=== PATIENT | male | born 1955 | race Caucasian/White ===

== ENCOUNTER 2016-06-04 12:42 | Emergency (ER) | payer BC, OTHER ==
[~2016-06-04] VITALS: Ht 177.8 cm; Wt 97.8 kg
[2016-06-04 12:50] VITALS: TEMP 36.5; Ht 177.8 cm; Wt 97.8 kg
[2016-06-04] MEDS ORDERED: XYLOCAINE 1%/SOD BICARB 20 ML VIAL INFIL ONE ×2 (13:13→13:15)
[2016-06-04] MEDS ORDERED: PRD/1 PO (13:24)
[2016-06-04] MEDS ORDERED: LISI5TAB PO (13:24)
[2016-06-04] MEDS ORDERED: PRED-301 PO (13:24)
[2016-06-04] MEDS ORDERED: ATOR-22 PO (13:24)
[2016-06-04] MEDS ORDERED: CEPH500C PO (14:28)
[2016-06-04] MEDS ORDERED: HYDR-5688 PO (14:28)
[2016-06-04] MEDS ORDERED: CEFAZOLIN IV 2,000 MG in DEXTROSE 5% 50ML 50 ML IV ONE (14:30)
[2016-06-04 15:30] VITALS: BP 134/76; PULSE 72; O2SAT 98
--- NOTE | 2016-06-04 18:05 | EMERGENCY ROOM VISIT NOTE ---
ED Visit Note First contact with patient: 13:01 Chief complaint: Left hand multiple finger lacerations HPI: This 60-year-old white male presents for evaluation of multiple lacerations on his left fingers. The patient was using a table saw today and accidentally pushed his hand into the blade. He sustained lacerations on the dorsum of the index, long, and ring fingers. Bleeding was controlled with pressure. Injury occurred about 20 minutes ago. He denies any numbness, tingling, or loss of motion. No other complaints. Tetanus is believed to be up -to-date. Pain is 3/10. Right-hand dominant. His accompanies him today. Supplemental sheet was reviewed. Previous surgeries: None Medical history: Elevated cholesterol, hypertension, polymyalgia rheumatica Current Medications: Reviewed and filed in patient's chart Allergies: NKDA Tetanus: 2013 Family History: Noncontributory Social History: . Employed part-time. No tobacco use. REVIEW OF SYSTEM: HEENT: No dizziness, visual problems, hearing loss, or tinnitus. There is no difficulty swallowing and no oral lesions are present. PULMONARY: No cough, shortness of breath, sputum production or hemoptysis. CARDIOVASCULAR: No chest pain, palpitations, shortness of breath or peripheral edema. GASTROINTESTINAL: No diarrhea, constipation, nausea, vomiting, or abdominal pain. GENITOURINARY: No dysuria, frequency, urgency or nocturia. NEUROLOGIC: No weakness, epilepsy or history of neurological problems. MUSCULOSKELETAL: No history of joint tenderness/swelling. No history of arthritis or arthralgias. SKIN: No rashes or lesions. PSYCHIATRIC: No history of depression or mental illness. ENDOCRINE: No history of diabetes, thyroid disorders, or abnormal hair growth. Physical Exam: Vitals: Afebrile. Reviewed and filed in patient's chart General: Well-developed, well-nourished, middle-aged white male, in no acute distress. Obvious discomfort. He is sitting on the bed. Alert and oriented. Skin: Warm and dry with good turgor. No rashes. No ecchymosis or erythema. The patient is not diaphoretic. No abrasions. The patient has a laceration of the ring finger involving the distal phalanx and part of his nail. Approximately one quarter of the nail is missing. It involves the distal radial aspect of the tuft. This can be closed. It measures approximately 1 cm. The long finger has a dorsal laceration measuring 3 cm. There is also nail involvement and it does cross the DIP joint. This also could be closed. The index finger has a 2 cm laceration, also crossing the DIP joint. Approximately one third of the fingernail is missing. There is also a secondary laceration of just less than a centimeter on the index finger. Bleeding is active for all of these. No foreign material is visible. Wound edges are regular. Musculoskeletal: Patient has intact flexion and extension to each of the digits. Strength is 5/5 for resisted flexion and extension. This includes the DIP joints. Neurologic: Gross sensation is intact across the each of the digits by soft touch. Capillary refill is equal for each of the fingers.. Impression: Left hand multiple finger lacerations, with extensor tendon involvement and bone involvement/joint disruption Procedure: Informed oral consent was obtained for repair. Left hand was prepped with Betadine and draped with a sterile towel. Fingers were anesthetized using a total of 20 mL 1% plain buffered lidocaine in a digital block for each digit. Thorough inspection was performed for each digit. There is bone exposure and part of the tuft missing on the ring finger. There is also bone exposure and bone missing on the long finger. He has violated the DIP joint and there is approximately 25% of the joint entirely missing. There is approximately 50% of the extensor tendon attachment missing as well. He has violated the index finger distal phalanx and expose the extensor tendon on the index finger, though it is not visibly violated. Wounds were irrigated copiously using dilute Betadine and sterile saline under jet spray lavage. Wound edges were revised sharply using iris scissors. Wounds were closed using 4-0 nylon. Good wound edge approximation was achieved for each finger. No nail repair was performed. Hemostasis was achieved. Plan: Patient was educated regarding today's findings. Conservative care measures were discussed. Total laceration length is just under 6 cm. He has violated the joint of the long finger and approximately 50% of the extensor tendon attachment at the distal phalanx. There is nothing to repair were closed in regard to the tendon or the joint. He is aware. I did speak with Dr. Crowley by telephone. He'll follow the patient in the office later this week. He did recommend IV antibiotics and oral antibiotics. IV was established. Patient was given Ancef 2 g IV. Perception was provided for Keflex 500 mg 4 times a day 3 days. He was also prescribed Switchback 5 mg to be used every 6 hours as needed for severe pain. Driving precautions were given. Tylenol and Motrin every 6 hours for mild discomfort. Keep the wound covered and clean until seen on Sunday. Ice and elevate intermittently as needed for discomfort. Wound care handout was provided. Sutures out in 12 days. He may shower but keep the hand dry. Avoid soaking or swimming. Return to the ER for any acute changes or signs of infection. Current/Historical Medications Scheduled Atorvastatin (Lipitor), 20 MG PO DAILY Cephalexin Monohydrate (Keflex), 500 MG PO QID Lisinopril (Prinivil), 5 MG PO DAILY Prednisone (Prednisone), 3 MG PO DAILY Prednisone (Prednisone), 5 MG PO DAILY Scheduled PRN Hydrocodone/Acetaminophen 5MG/325MG (Switchback 5MG/325MG), 1-2 TABLET PO Q6 PRN for Pain Allergies Coded Allergies: No Known Allergies (Unverified , 06/04/16) Vital Signs Date Time Temp Pulse Resp B/P Pulse Ox O2 Delivery O2 Flow Rate FiO2 06/04/16 15:30 72 16 134/76 98 06/04/16 12:50 36.5 115 18 118/86 95 Room Air Medications Administered Medications (Trade) Dose Ordered Sig/Nitesh Route Start Time Stop Time Status Last Admin Dose Admin Cefazolin Sodium/ Dextrose (Ancef Iv/D5 50ml) 60 ml @ 100 mls/hr ONE ONCE IV 06/04/16 14:30 06/04/16 15:05 DC 06/04/16 15:02 100 MLS/HR Departure Information Impression Primary Impression: Laceration of finger nail bed Additional Impressions: Laceration of finger of left hand Laceration of finger of left hand with tendon involvement Dispostion Home / Self-Care Condition GOOD Prescriptions Hydrocodone/Acetaminophen 5MG/325MG (Switchback 5MG/325MG) Tab 1-2 TABLET PO Q6 Y for Pain, #10 TAB For Initial Treatment Prov: Estuardo Strickland,P.A. 06/04/16 Cephalexin Monohydrate (Keflex) 500 Mg Cap 500 MG PO QID, #13 CAP Prov: Estuardo Strickland,P.A. 4/9/17 Referrals Wan Crowley M.D. Forms HOME CARE DOCUMENTATION FORM, SPECIAL NARCOTICS INSTRUCTIONS, MOTRIN USE, TYLENOL USE, IMPORTANT VISIT INFORMATION Patient Instructions [facility] Additional Instructions Keep the fingers and dry until seen by Dr. Crowley on Sunday You may shower but keep the hand dry Tylenol and Motrin every 6 hours as needed for discomfort Sutures out in 12 days Return to the ED for any acute changes or signs of infection. Call Dr. Crowley's office tomorrow for follow-up on Sunday Keflex one pill 4 times a day for 3 more days Problem Qualifiers
== END 2016-06-04 15:31 | disposition home or self-care (01) ==
LOC: C.EDB 12:43 → C.EDD 15:31
DX: S61.311A Laceration without foreign body of left index finger with damage to nail, initial encounter (principal); S61.315A Laceration without foreign body of left ring finger with damage to nail, initial encounter; S61.312A Laceration without foreign body of right middle finger with damage to nail, initial encounter; W26.8XXA Contact with other sharp object(s), not elsewhere classified, initial encounter; Y92.89 Other specified places as the place of occurrence of the external cause; E78.00 Pure hypercholesterolemia, unspecified; I10 Essential (primary) hypertension

== ENCOUNTER 2019-02-20 10:26 | Inpatient (IN) ==
--- NOTE | 2019-02-03 08:33 | PAT Medication Instructions ---
Medication Instructions Date of Service February 03, 2019 Home Medications atorvastatin 20 mg PO QPM hydroxychloroquine 200 mg PO BID lisinopril 5 mg PO QAM ASK your prescriber and surgeon hydroxychloroquine 200 mg PO BID DO NOT take the morning of surgery lisinopril 5 mg PO QAM Take evening before surgery atorvastatin 20 mg PO QPM Other Notes If you have any questions please call us at [phone] or [phone] or [phone] or [phone]
--- NOTE | 2019-02-03 09:29 | Anesthesiology Consultation ---
Date of Service February 03, 2019 Assessment & Plan (1) Encounter for pre-operative examination: *Note, facial asymmetry is BASELINE for patient. Chart Review Chart Review: Acceptable Risk for Surgery and Patient seen in Pre Admission Testing Teaching & Discussion Instructed NPO after midnight before surgery, except medications with 15 cc of water. Medication instructions provided according to the PAT guidelines. History Surgery Operation Date: 02/20/19 12:00 Proposed Procedures p Laparoscopic Robotic Assisted Radical Retropubic Prostatectomy, Possible Open, Possible Pelvic Lymph Node Dissection, Possible Suprapubic Tube Placement - Abdulkadir Gordon MD Height/Weight Height: 5 ft 10 in Weight: 90.8 kg Allergies Allergy/AdvReac Type Severity Reaction Status Date / Time No Known Drug Allergies Allergy Verified 02/04/19 09:16 Medications Home Medications Medication Instructions Recorded Confirmed Last Taken atorvastatin 20 mg PO QPM 03/04/18 02/04/19 01/30/19 hydroxychloroquine 200 mg PO BID 03/04/18 02/04/19 01/31/19 lisinopril 5 mg PO QAM 03/04/18 02/04/19 01/31/19 Past Medical History Medical History 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 Hyperlipidemia Hypertension Hypertrophy of both inferior nasal turbinates Long-term use of hydroxychloroquine For undifferentiated connective tissue disorder Migraine with aura not recently Muscle weakness (generalized) Nasal septal deviation S/P surgery ABILIO (obstructive sleep apnea) Tested + a few months ago; was told no CPAP at the time, started with septoplasty/turbinate reduction. Osteoarthritis of hip Left Patellofemoral syndrome Polymyalgia Positive double stranded DNA antibody test Prostate ca Diagnosed 01/06/19 - [place] 4+4 Undifferentiated connective tissue disease Exercise / Class Metabolic Activity II 4-5 Yardwork/Stairs/Walk up hill (Denies CP or SOB with 1 FOS) Past Family History Family History Brother Prostate cancer, Onset Age: 54 s/p RALP - doing well Father , Passed age 61 of heart disease Cardiac disorder Hypertension Stroke Mother Basal cell carcinoma (BCC) Brother No problems noted. Daughter No problems noted. Daughter No problems noted. Other No family history of bleeding disorder Past Surgical History Surgical History History of brain surgery 11/29/2007 - ACOUSTIC NEUROMA - SLIGHT PARALYSIS LEFT FACE RESIDUAL FROM TUMOR/DEAF LEFT EAR. Has a weight in the L eyelid. History of cataract surgery 03/20/18 - LEFT & 04/03/18 - RIGHT History of colonoscopy 08/18/2009 History of eye surgery 12/03/2007 - Weight placed in left eye History of nasal septoplasty 01/13/19 - With turbinate reduction History of prostate biopsy 01/06/19 History of toe surgery 11/2006 - Left History of tonsillectomy 1960 Hx of LASIK 01/2006 - BILAT Hx of vasectomy 11/1994 Past Anesthesia History No Hx of Anesthesia Complications, Difficult Airway (h/o Glidescope) and No Family Hx of Anesthesia Complications History of PONV No Hx of PONV and No Hx of Motion Sickness Social History Smoking Status: Never smoker Do You Dip or Chew Tobacco: No Hx Alcohol Use: Yes Alcohol type: wine alcohol intake frequency: 0-2 drinks per day Hx Substance Use: No substance use type: does not use Review of Systems Pt denies any recent chest pain, shortness of breath, palpitations, cough, fever or URI. Physical Exam Vital Signs BP: 135/87 (pt is anxious, reports usually 120's/80s) P: 88bpm SPO2: 97% RA T: 97.9 F R: 12 ENMT Mouth: + dental restorations (crown on upper R incisor); no chipped teeth and no loose teeth Thyromental Distance: < 3.5 Finger Breadths (2) Mallampati Class: II Asymmetry of oral opening 2/2 L sided paralysis. Neck + shortened thyromental distance; neck extension not limited Respiratory normal respiratory effort Auscultation: lungs clear to auscultation bilaterally Cardiovascular Rate/Rhythm: regular rate and regular rhythm Heart Sounds: no murmur Vessels: no carotid bruit Extremities: no edema Testing Laboratory Results 02/03/19 09:40 12 09:40 Urine Color Dark Yellow 02/03/19 09:40 Urine Appearance Clear (Clear) 02/03/19 09:40 Urine pH 6.5 (4.5-7.5) 02/03/19 09:40 Ur Specific Carlin 1.021 (1.000-1.030) 02/03/19 09:40 Urine Protein Trace (Negative) H 02/03/19 09:40 Urine Glucose (UA) Negative (Negative) 02/03/19 09:40 Urine Ketones Negative (Negative) 02/03/19 09:40 Urine Nitrite Negative (Negative) 02/03/19 09:40 Ur Leukocyte Esterase 2+ (Negative) H 02/03/19 09:40 Urine WBC (Auto) 10-30 /hpf (0-5) H 02/03/19 09:40 Urine RBC (Auto) 0-4 /hpf (0-4) 02/03/19 09:40 U Hyaline Cast (Auto) 1-5 /lpf (0-5) 02/03/19 09:40 U Epithel Cells (Auto) 10-20 /lpf (0-5) H 02/03/19 09:40 Urine Bacteria (Auto) Negative (Negative) 02/03/19 09:40 Blood Type O Positive 02/03/19 09:40 Antibody Screen NEGATIVE 02/03/19 09:40 Electrocardiogram Date: 12/23/18 Findings: + NSR @ (91bpm) Chest X-Ray Date: 02/03/19 Findings: + NAD
--- NOTE | 2019-02-03 10:23 | XRay Report ---
XR chest Pre-admission PA/Lat CLINICAL HISTORY: 63 years-old Male presenting with preoperative assessment. TECHNIQUE: PA and lateral views of the chest were obtained. COMPARISON: None. FINDINGS: Cardiomediastinal silhouette normal. Lungs and pleural spaces clear. Degenerative changes of the thor acic spine. Upper abdomen normal. IMPRESSION: 1. No acute cardiopulmonary disease. Electronically signed by: Tono Kitchen M.D. 02/03/2019 10:21 AM
[2019-02-03 10:41] LABS: Basophils # (auto) 0.03 K/uL (0-0.2); Basophils % (auto) 0.6 %; Eosinophils # (auto) 0.22 K/uL (0-0.5); Eosinophils % (auto) 4.4 %; Hematocrit (blood only) 44.1 % (42-52); Hemoglobin 15.5 g/dL (14.0-18.0); Lymphocytes # (auto) 1.57 K/uL (1.2-3.4); Lymphocytes % (auto) 31.2 %; Mean Corpuscular Hemoglobin 33.6 pg (25-34); Mean Corpuscular Hgb Conc 35.1 g/dL (32-36); Mean Corpuscular Volume 95.7 fL (80-100); Mean Platelet Volume 9.2 fL (7.4-10.4); Monocytes # (auto) 0.45 K/uL (0.11-0.59); Monocytes % (auto) 8.9 %; Neutrophils # (auto) 2.77 K/uL (1.4-6.5); Neutrophils % (auto) 54.9 %; Platelet Count 218 K/uL (130-400); RDW Coefficient of Variation 12.5 % (11.5-14.5); RDW Standard Deviation 43.1 fL (36.4-46.3); Red Blood Count 4.61 M/uL (4.7-6.1); White Blood Count 5.04 K/uL (4.8-10.8)
[2019-02-03 10:47] LABS: Appearance Urine Clear (Clear); Bacteria Urine Automated Negative (Negative); Bilirubin Urine Negative (Negative); Blood Urine Negative (Negative); Color Urine Dark Yellow; Glucose Urine UA Negative (Negative); Ketones Urine Negative (Negative); Leukocyte Esterase Urine 2+ (Negative); Nitrite Urine Negative (Negative); Protein Urine Trace (Negative); RBC Urine Automated 0-4 /hpf (0-4); Specific Gravity Urine 1.021 (1.000-1.030); Urobilinogen Urine Negative (Negative); pH Urine 6.5 (4.5-7.5)
[2019-02-03 10:48] LABS: BUN Creatinine Ratio 11.6 (10-20); Calcium 9.4 mg/dl (8.5-10.1); Creatinine Clr Calc Pharmacy 56.4 ml/min; Est GFR (African American) 54.8; Est GFR (Non-African American) 47.2; Potassium 3.9 mmol/L (3.5-5.1)
[~2019-02-20 10:26] MED LIST: CEFAZOLIN 2000MG 2,000 MG/15 ML SYR IV SCH; HEPARIN SOD 5,000 UNIT/0.5 ML VIAL SQ SCH; LR 15ML/HR IV SCH
[2019-02-20] MEDS ORDERED: ePHEDrine sulfate 50 MG/ML AMP IV PRN (11:02)
[2019-02-20] MEDS ORDERED: fentaNYL citrate 100 MCG/2 ML VIAL IV PRN (11:02)
[2019-02-20] MEDS ORDERED: HYDROmorphone INJ 2 MG/ML SYR/VIAL IV PRN (11:02)
[2019-02-20] MEDS ORDERED: ATROPINE SULFATE 0.1 MG/ML 10ML SYR IV PRN (11:02)
[2019-02-20] MEDS ORDERED: ONDANSETRON INJ 2 MG/ML 2 ML VIAL IV PRN ×2 (11:02→16:55)
[2019-02-20] MEDS ORDERED: MIDAZOLAM HCL 1 MG/ML 2ML VIAL ONE (11:22)
[2019-02-20] MEDS ORDERED: fentaNYL citrate 100 MCG/2 ML VIAL ONE (11:22)
[2019-02-20] MEDS ORDERED: BUPIVACAINE 0.5 % 5 MG/1 ML MPF 30ML VIAL ONE (11:40)
--- NOTE | 2019-02-20 11:50 | History & Physical Bridge Note ---
Date of Service February 20, 2019 History & Physical Bridge Note I have examined the patient, reviewed the History & Physical and in the interval since the performance of the History & Physical I have noted the following changes of clinical significance: no changes noted
[2019-02-20] MEDS ORDERED: ACETAMINOPHEN 1,000 MG/100 ML VIAL IV ONE (12:02)
[2019-02-20] MEDS ORDERED: BELLADONNA/OPIUM SUPP 60 MG SUPP PR ONE (12:38)
[2019-02-20] MEDS ORDERED: DEXAMETHASONE SOD INJ 4 MG/ML VIAL ONE ×2 (12:41→13:45)
[2019-02-20] MEDS ORDERED: ROCURONIUM BROMIDE 10 MG/ML 5 ML VIAL ONE ×3 (12:41→14:34)
[2019-02-20] MEDS ORDERED: PROPOFOL IV EMULSION 10 MG/ML 20 ML VIAL IV ONE (12:41)
[2019-02-20] MEDS ORDERED: SUCCINYLCHOLINE CHLORIDE 20 MG/ML 10 ML VIAL ONE (12:41)
[2019-02-20] MEDS ORDERED: ONDANSETRON INJ 2 MG/ML 2 ML VIAL ONE ×2 (12:41→15:34)
[2019-02-20] MEDS ORDERED: PHENYLEPHRINE 100MCG/ML 5ML SYR ONE (12:41)
[2019-02-20] MEDS ORDERED: LIDOCAINE HCL 2% 2 ML VIAL/AMP(20MG/ML) INFIL ONE (12:41)
[2019-02-20] MEDS ORDERED: HYDROmorphone INJ 2 MG/ML SYR/VIAL ONE (13:05)
[2019-02-20] MEDS ORDERED: BELLADONNA/OPIUM SUPP 60 MG SUPP PR PRN (13:36)
[2019-02-20] MEDS ORDERED: SUGAMMADEX SODIUM 200 MG/2 ML VIAL IV ONE (15:44)
--- NOTE | 2019-02-20 15:58 | Operative Report ---
PG Post Operative Report Pre & Post Diagnosis Operation Date: 02/20/19 12:00 Pre-Op Diagnosis: Prostate Cancer Post-Op Diagnosis: Prostate Cancer I identified the patient and participated in the time-out.: Yes Procedure Operation Date: 02/20/19 12:00 Actual Procedures p Robotic Laparoscopic Assisted Radical Retropubic Prostatectomy, Bilateral Pelvic Lymph Node Dissection(Not Applicable) - Abdulkadir Gordon MD Surgeon Abdifatah Gordon MD Maintenance Pipefitter Betzaida Rayo; Adrianna Guevara Estimated Blood Loss 100 Findings Consistent with Post-Op Diagnosis Specimens 1. Periprostatic fat 2. Right pelvic lymph nodes 3. Left pelvic lymph nodes 4. Prostate and Seminal vesicles Description of Procedure The patient was identified in the preoperative holding area, appropriate informed consents were reviewed and completed, and he was transported to the operating suite. Subcutaneous heparin was administered in the pre-operative holding area. Upon arrival in the operating suite, he received appropriate antibiotics and general anesthesia. He was positioned in dorsal lithotomy, a B&O suppository was inserted after digital rectal exam, and he was prepped and draped in standard fashion. A Bob catheter was inserted in the sterile field. A Veress needle was passed per umbilicus with uniform insufflation of the abdomen to 15mmHg. He was placed in steep Trendelenburg position. A periumbilical incision was then made to accommodate a 12mm Visiport with 10mm 0degree laparoscope. Inspection of the abdomen was carried out, and there was no evidence of traumatic entry or injury secondary to the Veress needle. After confirming a clear anterior abdominal wall, ports were subsequently placed in standard robotic prostatectomy fashion without incident. To begin the robotic portion of the case, the left lateral aspect of the sigmoid was mobilized off of the left pelvic side wall to allow the pouch of Anthony to be appropriately visualized. I then made an incision in the pouch of Anthony, overlying the seminal vesicles. Both SVs as well as the ampullae of the vasa were entirely dissected, with the vasa transected 3cm from the prostate. The medial umbilical ligaments were then controlled with bipolar electrocautery just inferior to the umbilicus. Following cauterization, they were divided uti lizing monopolar cautery. A peritoneal incision was carried from this location to the medial aspect of the internal inguinal rings bilaterally with care to avoid opening through the ring. Of note, a direct right inguinal hernia was visualized. This incision was concluded when the vas deferens was reached. Dissection of the bladder and prostate off of the posterior aspect of the pubic arch was completed allowing full visualization of the prostate. The fat overlying the prostate was removed en bloc and passed off the table as a specimen labeled "periprostatic fat". The endopelvic fascia was cleared during this portion of the procedure, and subsequently opened - first on the right and then the left. The incision through the endopelvic fascia began near the prostate-bladder junction and was carried to the apex with extreme care to preserve all lateral levator musculature as well as the periurethral musculature and sphincter complex. The puboprostatic ligaments were thinned slightly bilaterally before placing a 0-Vicryl figure of 8 stitch around the DVC. I then turned my attention back to the aforementioned right inguinal hernia and I reapproximated the transversalis fascia with a running V-whit stitch. The lymph node dissection was then conducted. External iliac vessels were identified on the pelvic side wall. The packet of fat and lymphatic tissue that resides just under the iliac vein was elevated and off of the vein with a split and roll technique. The packet was dissected laterally to the circumflex vein and distally to the obturator nerve which was preserved. I continued my dissection up the external iliac until the iliac bifurcation was identified. A combination of monopolar and bipolar cautery were used to assist with control. Clips were placed at the proximal and distal aspects of the packet prior to transection. After completing the dissection on both sides, the packets were collected and passed off of the table as specimens labeled "p elvic lymph nodes". Of note, he had a prominent artery penetrating into the packets bilaterally, but I was able to dissect around these structures preserving both arteries. My attention then returned to the prostate, with identification of the bladder neck aided by gentle traction on the Bob catheter and lateral to medial pressure at the presumed level of the bladder neck with the robotic instruments. An anterior cystotomy was made, the Bob balloon deflated and the catheter guided through the incision to allow anterior retraction. I attempted to preserve maximal bladder neck musculature as I circumferentially dissected around the bladder neck. After incision through the posterior aspect of the mucosa, the dissection was carried through detrusor muscle until the bilateral ampullae of the vasa were identified. The previously dissected vasa and SVs were brought through the incision and used to elevated the prostate anteriorly. A posterior plane behind the prostate was then developed - splitting Denonvilliers's fascia. This dissection was carried as far as possible towards the apex as well as far as possible laterally. An incision in the lateral prostatic fascia was then made bilaterally to facilitate control of the vascular pedicles. The pedicles were controlled with a vessel sealer device. Modest nerve sparing was performed on the left, and a cautious approach was taken on the right. The apical attachments of the prostate were remaining at that stage. The DVC was divided with bipolar electrocautery. There was an open vessel remaining and this was closed in figure of 8 fashion using a V-whit (2-0) stitch. Asuncion- prostatic tissue incised with sharp dissection and monopolar cautery. Maximal urethral length was preserved before dividing the urethra sharply. The prostate was entirely freed at that point, and collected in an EndoCatch bag before being moved out of the field of vision. Hemostasis was confirmed and anastomosis of the bladder and urethra was completed utilizing a double armed V- Lock stitch. A new Bob catheter was inserted and the anastomosis tested with irrigation. There was no evidence of leak. FloSeal coagulant was placed around the anastomosis. A viktor style stitch was placed to payton the mucosa to the site of lymph node dissection. The robot was undocked, the specimen extracted through expansion of the asuncion- umbilical camera port. The fascia was closed with a series of 0-PDS figure of 8 stitches. The right curatorial assistant port was closed in two layers - with a figure of 8 0-Vicryl to reapproximate the fascia followed by 4-0 Monocryl to close the skin. Monocryl was used to close all other skin incisions. All wounds were dressed with Dermabond. The case was concluded and the patient taken to the PACU in stable condition. I attest to the content of the Intraoperative Record and any orders documented therein. Any exceptions are noted below.
[2019-02-20 16:04] LABS: Basophils # (auto) 0.02 K/uL (0-0.2); Basophils % (auto) 0.2 %; Eosinophils # (auto) 0.09 K/uL (0-0.5); Hemoglobin 14.8 g/dL (14.0-18.0); Immature Granulocytes # (auto) 0.06 K/uL (0.00-0.02); Immature Granulocytes % (auto) 0.7 %; Lymphocytes % (auto) 14.3 %; Mean Corpuscular Hemoglobin 32.5 pg (25-34); Mean Corpuscular Volume 92.3 fL (80-100); Monocytes # (auto) 0.16 K/uL (0.11-0.59); Monocytes % (auto) 1.8 %; Neutrophils # (auto) 7.45 K/uL (1.4-6.5); Platelet Count 202 K/uL (130-400); RDW Coefficient of Variation 12.4 % (11.5-14.5); RDW Standard Deviation 41.5 fL (36.4-46.3); Red Blood Count 4.55 M/uL (4.7-6.1); White Blood Count 9.08 K/uL (4.8-10.8)
[2019-02-20 16:11] LABS: Mean Corpuscular Hgb Conc 35.2 g/dL (32-36)
[2019-02-20 16:26] LABS: BUN Creatinine Ratio 9.4 (10-20); Calcium 8.5 mg/dl (8.5-10.1); Creatinine Clr Calc Pharmacy 60.5 ml/min; Est GFR (African American) 60.3; Potassium 4.6 mmol/L (3.5-5.1)
--- NOTE | 2019-02-20 16:43 | Anesthesiology Progress Note ---
Date of Service February 20, 2019 Anesthesia Post Procedure Vital Signs Vital Signs: Temp Pulse Pulse Resp BP BP Pulse Ox 02/20/19 16:30 36.6 C 71 12 131/80 97 02/20/19 16:20 72 13 127/74 98 02/20/19 16:10 73 12 130/80 100 02/20/19 16:00 74 12 141/78 H 100 02/20/19 15:51 36.4 C L 83 14 145/81 H 100 02/20/19 11:18 36.5 C 85 18 153/93 H 98 Pain Intensity Abdomen: Pain Intensity: 4 Transfer of Care Handoff Completed per policy Notes Mental Status: alert / awake / arousable and participated in evaluation Patient Amnestic to Procedure: Yes Nausea / Vomiting: adequately controlled Pain: adequately controlled Airway Patency, RR, SpO2: stable & adequate BP & HR: stable & adequate Hydration State: stable & adequate Anesthetic Complications: no major complications apparent
[2019-02-20] MEDS ORDERED: OXYCODONE HCL IR 5 MG TAB (IMMEDIATE RELEASE) PO PRN ×2 (16:55)
[2019-02-20] MEDS ORDERED: MoRPHine SULFATE 10 MG/ML CARP/VIAL IV PRN (16:55)
[2019-02-20] MEDS ORDERED: MoRPHine SULFATE 4 MG/ML 1 ML CARP\\VIAL IV PRN (16:55)
[2019-02-20] MEDS: LACTATED RINGER'S 1,000 ML IV SCH (19:10)
[2019-02-20] MEDS: CEFAZOLIN 2000MG 2,000 MG/15 ML SYR IV SCH (19:32)
[2019-02-20] MEDS: HYDROXYCHLOROQUINE SULFATE 200 MG TAB PO SCH (20:53)
[2019-02-20] MEDS: HEPARIN SOD 5,000 UNIT/0.5 ML VIAL SQ SCH (20:54)
[2019-02-20] MEDS ORDERED: ATORVASTATIN 20 MG TAB PO SCH (21:00)
[2019-02-20] MEDS: ACETAMINOPHEN 1,000 MG/100 ML VIAL IV SCH (21:48)
[2019-02-21] MEDS: LACTATED RINGER'S 1,000 ML IV SCH (04:59)
[2019-02-21] MEDS: CEFAZOLIN 2000MG 2,000 MG/15 ML SYR IV SCH (04:59)
[2019-02-21] MEDS: ACETAMINOPHEN 1,000 MG/100 ML VIAL IV SCH (05:00)
[2019-02-21] MEDS ORDERED: COUGH DROP (SUGAR FREE) LOZ 24 LOZ/1 BOX BUCCAL ONE (05:08)
[2019-02-21 05:56] LABS: Basophils # (auto) 0.01 K/uL (0-0.2); Basophils % (auto) 0.1 %; Hematocrit (blood only) 35.5 % (42-52); Hemoglobin 12.2 g/dL (14.0-18.0); Immature Granulocytes # (auto) 0.02 K/uL (0.00-0.02); Immature Granulocytes % (auto) 0.2 %; Lymphocytes # (auto) 0.76 K/uL (1.2-3.4); Lymphocytes % (auto) 8.9 %; Mean Corpuscular Hemoglobin 31.9 pg (25-34); Mean Corpuscular Hgb Conc 34.4 g/dL (32-36); Mean Corpuscular Volume 92.9 fL (80-100); Mean Platelet Volume 8.7 fL (7.4-10.4); Monocytes # (auto) 0.71 K/uL (0.11-0.59); Monocytes % (auto) 8.3 %; Neutrophils # (auto) 7.01 K/uL (1.4-6.5); Neutrophils % (auto) 82.5 %; Platelet Count 198 K/uL (130-400); RDW Coefficient of Variation 12.4 % (11.5-14.5); RDW Standard Deviation 42.1 fL (36.4-46.3); Red Blood Count 3.82 M/uL (4.7-6.1); White Blood Count 8.51 K/uL (4.8-10.8)
[2019-02-21 06:22] LABS: BUN Creatinine Ratio 12.6 (10-20); Calcium 8.1 mg/dl (8.5-10.1); Creatinine Clr Calc Pharmacy 69.7 ml/min; Est GFR (African American) 71.6; Est GFR (Non-African American) 61.8; Potassium 4.4 mmol/L (3.5-5.1)
[2019-02-21 07:11] VITALS: TEMP 98.2; O2SAT 97
[2019-02-21] MEDS: HYDROXYCHLOROQUINE SULFATE 200 MG TAB PO SCH (08:55)
[2019-02-21] MEDS: HEPARIN SOD 5,000 UNIT/0.5 ML VIAL SQ SCH (08:55)
--- NOTE | 2019-02-21 08:58 | Urology Progress Note ---
Date of Service February 21, 2019 Assessment & Plan (1) Prostate ca: 63 yo M POD#1 s/p RALRP w/ BLND. Progressing very well, no issues overnight. - Advance diet - D/C IV fluids - Continue ambulation - Plan to discharge after lunch if continues to progress. Subjective 63 yo M POD #1 s/p RALRP w/ BLND. Awake, sitting up in bed with meal tray. at bedside. Doing well, no issues overnight. - Pain is controlled with scheduled IV Tylenol, has not required additional pain management. - Tolerating clear liquids and would like to advance diet. - Bob catheter intact draining clear yellow urine. Denies discomfort from catheter. - Has been OOB overnight and this morning. - Patient states he would like to go home today. - Labs reviewed, values as expected. Review of Systems Review of Systems: All systems reviewed & are unremarkable except as noted in HPI & below Physical Exam Constitutional: well developed and well nourished; no acute distress Respiratory: normal respiratory effort Cardiovascular: Extremities: no pedal edema Gastrointestinal (Abdomen): Inspection/Auscultation: abdomen not distended Percussion/Palpation: abdomen soft; abdomen nontender Skin: Incisions c/d/i Neurologic: moves all extremities and awake Facial asymmetry at baseline Psychiatric: Orientation: alert and oriented x 3 Genitourinary: Bob catheter intact draining clear yellow urine Results & Data Vital Signs (Past 12 Hours) Vital Signs Temp Pulse Resp BP Pulse Ox 02/21/19 07:08 36.8 C 83 16 124/72 97 02/21/19 03:39 36.7 C 91 H 16 123/79 96 02/20/19 23:01 36.6 C 94 H 16 138/74 95 PG Care Time/CCT Total # of Minutes Spent Total Time Spent with Patient: Total time spent is greater than 50% in coordination of care (as documented) at patient's floor/unit and/or counseling patient:
[2019-02-21] MEDS ORDERED: lisinopriL 5 MG TAB PO SCH (09:00)
[2019-02-21 09:18] VITALS: BP 153/93; PULSE 93
--- NOTE | 2019-02-21 09:43 | Anesthesiology Progress Note ---
Date of Service February 21, 2019 Anesthesia Post Procedure Vital Signs Vital Signs: Temp Pulse Pulse Pulse Resp BP BP 02/21/19 09:17 36.8 C 83 93 H 16 124/72 153/93 H 02/21/19 07:08 36.8 C 83 16 124/72 02/21/19 03:39 36.7 C 91 H 16 123/79 02/20/19 23:01 36.6 C 94 H 16 138/74 02/20/19 19:58 36.7 C 93 H 16 132/79 02/20/19 18:59 36.5 C 78 16 132/84 02/20/19 17:53 36.4 C L 92 H 15 138/77 02/20/19 17:28 36.4 C L 85 16 126/80 02/20/19 16:55 37.1 C 84 14 117/75 02/20/19 16:40 85 12 142/77 H 02/20/19 16:30 36.6 C 71 12 131/80 02/20/19 16:20 72 13 127/74 02/20/19 16:10 73 12 130/80 02/20/19 16:00 74 12 141/78 H 02/20/19 15:51 36.4 C L 83 14 145/81 H 02/20/19 11:18 36.5 C 85 18 153/93 H Pulse Ox 02/21/19 09:17 97 02/21/19 07:08 97 02/21/19 03:39 96 02/20/19 23:01 95 02/20/19 19:58 92 02/20/19 18:59 98 02/20/19 17:53 98 02/20/19 17:28 97 02/20/19 16:55 96 02/20/19 16:40 97 02/20/19 16:30 97 02/20/19 16:20 98 02/20/19 16:10 100 02/20/19 16:00 100 02/20/19 15:51 100 02/20/19 11:18 98 Pain Intensity Abdomen: Pain Intensity: 5 Notes Mental Status: alert / awake / arousable Patient Amnestic to Procedure: Yes Nausea / Vomiting: adequately controlled Pain: adequately controlled Airway Patency, RR, SpO2: stable & adequate BP & HR: stable & adequate Hydration State: stable & adequate Anesthetic Complications: no major complications apparent and Pt Satisfied with anesthetic care
== END 2019-02-21 13:45 | disposition home or self-care (01) | DRG 708 ==
LOC: ASU 10:26 → 3W 15:51

== ENCOUNTER 2024-10-20 05:31 | Observation (INO) ==
--- NOTE | 2024-09-09 12:02 | PAT Medication Instructions ---
Medication Instructions Date of Service September 09, 2024 Home Medications Medication Instructions Recorded atorvastatin 20 mg tablet 20 mg PO QPM #90 tabs 12/24/23 hydroxychloroquine 200 mg tablet 200 mg PO BID #180 tabs 02/12/24 metronidazole 0.75 % topical gel 1 applic topical DAILY #45 grams 03/06/24 lisinopril 10 mg tablet 10 mg PO QAM #90 tabs 08/18/24 atovaquone 250 mg-proguanil 100 mg See Rx Instructions PO .COMPLEX 08/27/24 tablet (Malarone) #25 tabs Medication List: atorvastatin 20 mg tablet 20 mg PO QPM hydroxychloroquine 200 mg tablet 200 mg PO BID metronidazole 0.75 % topical gel 1 applic topical DAILY cholecalciferol (vitamin D3) 50 mcg (2,000 unit) capsule 50 mcg PO QAM lisinopril 10 mg tablet 10 mg PO QAM atovaquone 250 mg-proguanil 100 mg tablet (Malarone) See Rx Instructions PO .COMPLEX minoxidil 2.5 mg tablet 2.5 mg PO QAM MEDICATION INSTRUCTIONS: Continue as directed metronidazole 0.75 % topical gel 1 applic topical DAILY (do not apply after bathing prior to surgery) atovaquone 250 mg-proguanil 100 mg tablet (Malarone) See Rx Instructions PO .COMPLEX DO NOT take the morning of surgery cholecalciferol (vitamin D3) 50 mcg (2,000 unit) capsule 50 mcg PO QAM lisinopril 10 mg tablet 10 mg PO QAM Take morning of surgery With a small sip of water, OTHERWISE NOTHING TO EAT OR DRINK AFTER MIDNIGHT: hydroxychloroquine 200 mg tablet 200 mg PO BID minoxidil 2.5 mg tablet 2.5 mg PO QAM Take evening before surgery atorvastatin 20 mg tablet 20 mg PO QPM hydroxychloroquine 200 mg tablet 200 mg PO BID Other Notes If you have any questions please call us at [phone] or [phone] or [phone] or [phone]
--- NOTE | 2024-09-17 10:30 | Anesthesiology Consultation ---
Date of Service September 17, 2024 Assessment & Plan (1) Encounter for pre-operative examination: - Infectious disease screening: Per assessment on 09/17/24- No known recent infectious disease contacts or current infectious disease symptoms. - Outpatient joint assessment: Pt currently scheduled for inpatient pathway. If surgeon requests review for outpatient joint pathway, patient is an acceptable candidate for outpatient joint program from anesthesia standpoint pending surgeon's office assessment that patient is motivated, has good support and completes Same Day Joint Program preop requirements. - Hx difficult intubation: Patient states he was told hx difficult intubation/ Glidescope use with previous 2019 surgery. Septoplasty/bilateral inferior turbi sabrina reduction 01/13/19- Unable to view glottic opening with 4 MAC blade. Intubated on 3rd attempt with Glidescope. > Subsequent Robotic radical retropubic prostatectomy 02/20/19- Grade 3 view, Glidescope#3, ETT 7.0 at [facility]. LMA#5 used with 09/2022 Left cysto/laser/stent at [facility]. 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 Medication instructions provided according to the PAT guidelines. History Surgery Operation Date: 10/20/24 07:15 Proposed Procedures p Left Anterior Total Hip Arthroplasty - Aashish Fritz, Height/Weight Height: 5 ft 10 in Weight: 91.5 kg Allergies Allergy/AdvReac Type Severity Reaction Status Date / Time No Known Drug Allergies Allergy Verified 09/17/24 09:35 Medications Home Medications Medication Instructions Recorded Confirmed Last Taken atorvastatin 20 mg tablet 20 mg PO QPM #90 tabs 12/24/23 09/17/24 Unknown hydroxychloroquine 200 mg tablet 200 mg PO BID #180 tabs 02/12/24 09/17/24 Unknown metronidazole 0.75 % topical gel 1 applic topical DAILY #45 grams 03/06/24 09/17/24 Unknown cholecalciferol (vitamin D3) 50 50 mcg PO QAM 07/31/24 09/17/24 Unknown mcg (2,000 unit) capsule lisinopril 10 mg tablet 10 mg PO QAM #90 tabs 08/18/24 09/17/24 Unknown atovaquone 250 mg-proguanil 100 mg See Rx Instructions PO .COMPLEX 08/27/24 09/17/24 Unknown tablet (Malarone) #25 tabs minoxidil 2.5 mg tablet 2.5 mg PO QAM 09/09/24 09/17/24 Unknown Past Medical History Medical History CKD (chronic kidney disease) Complete deafness of left ear Facial asymmetry 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) History of diverticulosis History of prostate cancer s/p prostatectomy (~2018) History of renal stone Hx of basal cell carcinoma Hx of gout Hyperlipidemia Hypertension Muscle weakness (generalized) Patellofemoral syndrome Undifferentiated connective tissue disease Reason for hydroxychloroquine per records Follows with [facility] rheumatology Exercise / Class Metabolic Activity II 4-5 Yardwork/Stairs/Walk up hill Past Family History Family History Brother Prostate cancer Father , Passed age 61 of heart disease Cardiac disorder Hypertension Stroke Mother Basal cell carcinoma (BCC) Congestive heart failure Brother No problems noted. Daughter No problems noted. Daughter No problems noted. Other No family history of adverse response to anesthesia No family history of bleeding disorder Denies family history of Ovarian cancer Myocardial infarction Breast cancer Colorectal cancer Past Surgical History Surgical History Difficult airway for intubation Patient states he was told hx difficult intubation/Glidescope use with previous 2019 surgery. Septoplasty/bilateral inferior turbinate reduction 01/13/19- Unable to view glottic opening with 4 MAC blade. Intubated on 3rd attempt with Glidescope. > Subsequent Robotic radical retropubic prostatectomy 02/20/19- Grade 3 view, Glidescope#3, ETT 7.0 at [facility]. LMA#5 used with 09/2022 Left cysto/laser/stent at [facility]. History of brain surgery 11/29/2007 - Acoustic neuroma ([facility]) > Slight left sided facial paralysis residual from tumor/left ear deaf, has a weight in the Left eyelid History of cataract surgery R/L History of colonoscopy 2020 History of cystoscopy (10/17/22) Left cysto, laser, stent: LMA#5 at [facility] History of esophagogastroduodenoscopy (EGD) History of eye surgery 12/03/2007 - Weight placed in left eye History of Mohs micrographic surgery for skin cancer History of nasal septoplasty 01/13/19 - With turbinate reduction History of prostate biopsy 01/06/19 History of toe surgery 11/2006 - Left History of tonsillectomy 1960 History of tooth extraction Hx of LASIK B/L (01/2006) Hx of prostatectomy Hx of vasectomy 11/1994 Past Anesthesia History Difficult Airway (see below) and No Family Hx of Anesthesia Complications Patient states he was told hx difficult intubation/Glidescope use with previous 2019 surgery. Septoplasty/bilateral inferior turbinate reduction 01/13/19- Unable to view glottic opening with 4 MAC blade. Intubated on 3rd attempt with Glidescope. > Subsequent Robotic radical retropubic prostatectomy 02/20/19- Grade 3 view, Glidescope#3, ETT 7.0 at [facility]. LMA#5 used with 09/2022 Left cysto/laser/stent at [facility]. History of PONV No Hx of PONV and Hx of Motion Sickness (Rare situations) Social History Smoking Status: Never smoker Do You Dip or Chew Tobacco: No Hx Alcohol Use: Yes Alcohol type: wine alcohol intake frequency: a few times a week substance use type: does not use Review of Systems Patient denies chest pain, shortness of breath, dyspnea on exertion, fever, chills, cough, wheezing, palpitations. Physical Exam Vital Signs BP 132/88 P 92 TEMP 97.8 SP02 98%RA RESP 18 Physical Full cervical extension range of motion. Full TMJ range of motion. TMD 3 finger breaths Mallampati Score III Dentition: intact, + caps Lungs: clear throughout to auscultation Cardiac: regular rate and rhythm, no murmurs noted Spine: normal Carotid arteries: negative bruit Extremities: no LE edema Asymmetry of oral opening d/t left sided facial paralysis Lab Results Anesthesia Preop Results Results Anesthesia Widget: WBC 4.89 K/ul (4.8-10.8) 09/17/24 Hgb 14.9 g/dl (14.0-18.0) 09/17/24 Hct 40.7 % (42.0-52.0) L 09/17/24 Plt 203 K/uL (130-400) 09/17/24 Na 138 mmol/L (136-145) 09/17/24 K 4.2 mmol/L (3.5-5.1) 09/17/24 Cl 105 mmol/L (98-107) 09/17/24 CO2 28 mmol/L (21-32) 09/17/24 BUN 21 mg/dl (6-23) 09/17/24 Creat 1.51 mg/dl (0.6-1.4) H 09/17/24 Glucose Level 101 mg/dl (70-99(Fasting)) H 09/17/24 PT 10.2 Seconds (9.0-12.0) 09/17/24 PTT 27 Seconds (21-31) 09/17/24 INR 0.9 (0.9-1.1) 09/17/24 Blood Type O Positive 09/17/24 Antibody Screen NEGATIVE 09/17/24 Testing Electrocardiogram Date: 09/17/24 82bpm. SR with PACs. "Otherwise normal ECG" Chest X-Ray Date: 09/17/24 Findings: + NAD Stress Test Date: 08/17/22 Exercise METS 10 MPHR 100% Negative for ischemia Stress ECG showed up to [address] depression at peak exertion which resolved 3 minutes into recovery. Given normal echocardiographic response, this is a nonspecific finding Aortic root is mildly dilated, 3.6 cm EF 63%
--- NOTE | 2024-10-15 16:15 | History & Physical Report ---
Date of Service October 15, 2024 Assessment & Plan (1) Arthritis of left hip: We will proceed with a left anterior total of arthroplasty. Postoperatively, he will be started on aspirin for DVT prophylaxis and kept overnight in the hospital for postop medical management. He plans to use energy physical therapy at discharge. History of Present Illness Chief Complaint: Osteoarthritis of the left hip. Primary Care Provider: Frandy Traylor MD Frandy is a pleasant 68-year-old male who has been dealing with chronic increasing left hip and groin pain. It is to the point where he cannot even walk a mile. He likes to be active. X-rays and clinical exam have been diagnostic for advanced osteoarthritis of the left hip. After failing conservative treatment, he has elected proceed with a left anterior total of arthroplasty. Allergies Allergy/AdvReac Type Severity Reaction Status Date / Time No Known Drug Allergies Allergy Verified 09/17/24 09:35 Home Medications Medication Instructions Recorded Confirmed Type atorvastatin 20 mg tablet 20 mg PO QPM #90 tabs 12/24/23 09/17/24 Rx hydroxychloroquine 200 mg tablet 200 mg PO BID #180 tabs 02/12/24 09/17/24 Rx metronidazole 0.75 % topical gel 1 applic topical DAILY #45 grams 03/06/24 09/17/24 Rx cholecalciferol (vitamin D3) 50 50 mcg PO QAM 07/31/24 09/17/24 History mcg (2,000 unit) capsule lisinopril 10 mg tablet 10 mg PO QAM #90 tabs 08/18/24 09/17/24 Rx atovaquone 250 mg-proguanil 100 mg See Rx Instructions PO .COMPLEX 08/27/24 09/17/24 Rx tablet (Malarone) #25 tabs minoxidil 2.5 mg tablet 2.5 mg PO QAM 09/09/24 09/17/24 History cefdinir 300 mg capsule 300 mg PO BID #60 caps 09/24/24 Rx Past Med/Surg History Problem List Encounter for pre-operative examination Arthritis of left hip History of basal cell carcinoma Vitamin D deficiency Hematuria Nephrolithiasis Calculus of distal left ureter DISH (diffuse idiopathic skeletal hyperostosis) Neuroforaminal stenosis of cervical spine Cervical radiculopathy De Quervain's tenosynovitis, left Hyperglycemia Stress incontinence after surgical procedure Other skin changes Prostate ca Diagnosed 01/06/19 - Pineda 4+4 Elevated PSA Long-term use of hydroxychloroquine For undifferentiated connective tissue disorder Undifferentiated connective tissue disease follows with Dr. 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 Septoplasty/bilateral inferior turbinate reduction 01/13/19- Unable to view glottic opening with 4 MAC blade. Intubated on 3rd attempt with Glidescope. > Subsequent Robotic radical retropubic pros tatectomy 02/20/19- Grade 3 view, Glidescope#3, ETT 7.0 at [facility]. LMA#5 used with 09/2022 Left cysto/laser/stent at [facility]. History of prostate biopsy 01/06/19 History of nasal septoplasty 01/13/19 - With turbinate reduction History of colonoscopy 2020 History of tonsillectomy 1960 Hx of vasectomy 11/1994 Hx of LASIK B/L (01/2006) History of toe surgery 11/2006 - Left History of brain surgery 11/29/2007 - Acoustic neuroma ([facility]) > Slight left sided facial paralysis residual from tumor/left ear deaf, has a weight in the Left eyelid Family History Brother Prostate cancer Father , Passed age 61 of heart disease Cardiac disorder Hypertension Stroke Mother Basal cell carcinoma (BCC) Congestive heart failure Brother No problems noted. Daughter No problems noted. Daughter No problems noted. Other No family history of adverse response to anesthesia No family history of bleeding disorder Denies family history of Ovarian cancer Myocardial infarction Breast cancer Colorectal cancer Social History Smoking Status: Never smoker Second Hand Exposure: No; Do You Dip or Chew Tobacco: No; Hx Alcohol Use: Yes Alcohol type: wine Alcohol Intake Frequency Comment: 1 glass of wine per day Preferred Language: Finnish Communication Ability: Effective Communication Ability Comment: DEAF LEFT EAR Visual Impairment: No Limitations Hearing Ability: Concert Promoter Required: No Beliefs That Will Affect Care: None marital status: Current Living Situation: Spouse current occupational status: retired 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 Physical Exam On physical exam of the left hip, he has decreased range of motion. He has pain with internal/external rotation. All of his pain is located in the groin.. Constitutional WD/WN, vitals as above Eyes PERRL, conjunctivae normal, anicteric sclerae ENMT external ear and nose normal, oropharynx normal Neck trachea midline, no thyromegaly Respiratory normal respiratory effort Cardiovascular RRR, no murmur, no edema Gastrointestinal (Abdomen) normal bowel sounds, soft, nontender, no hepatosplenomegaly Psychiatric A+Ox3, euthymic affect Results & Data Results & Data Laboratory Results . Diagnostic Findings X-rays of the left hip show advanced osteoarthritis with joint space narrowing, osteophyte formation, and [id number] articulation. PG Care Time/CCT Total # of Minutes Spent Total Time Spent with Patient: Total time spent is greater than 50% in coordination of care (as documented) at patient's floor/unit and/or counseling patient: Coding Level of Care Code None Diagnoses Arthritis of left hip M16.12
[2024-10-20] MEDS: LR 60ML/HR IV SCH (05:54)
[2024-10-20] MEDS: LR 500ML BOLUS, THEN 15ML/HR IV SCH (05:54)
[2024-10-20] MEDS: GABAPENTIN 300 MG CAP PO SCH (05:54)
[2024-10-20] MEDS: ACETAMINOPHEN 500 MG TAB PO SCH ×2 (05:54→13:54)
[2024-10-20] MEDS: FAMOTIDINE 20 MG TAB PO SCH (05:54)
[2024-10-20] MEDS: dexAMETHasone**PF** 10 MG/ML VIAL IV SCH (05:55)
--- NOTE | 2024-10-20 06:01 | History & Physical Bridge Note ---
Date of Service October 20, 2024 History & Physical Bridge Note I have examined the patient, reviewed the History & Physical and in the interval since the performance of the History & Physical I have noted the following changes of clinical significance: no changes noted
[2024-10-20] MEDS ORDERED: BUPIVACAINE 0.5 % 5 MG/1 ML PF 10ML VIAL ONE (06:26)
[2024-10-20] MEDS ORDERED: ONDANSETRON INJ 2 MG/ML 2 ML VIAL IV PRN ×2 (06:30→09:35)
[2024-10-20] MEDS ORDERED: ATROPINE SULFATE 0.1 MG/ML 10ML SYR IV PRN (06:30)
[2024-10-20] MEDS ORDERED: PROPOFOL IV EMULSION 10 MG/ML 20 ML VIAL IV ONE (06:35)
[2024-10-20] MEDS ORDERED: MIDAZOLAM HCL 1 MG/ML 2ML VIAL ONE (06:36)
[2024-10-20] MEDS: TRANEXAMIC ACID 1,000 MG **IV Pre-op IV SCH (06:43)
[2024-10-20] MEDS ORDERED: LIDOCAINE 2% 2 ML VIAL/AMP(20MG/ML) INFIL ONE (06:44)
[2024-10-20] MEDS: ORTHO JOINT ANESTHETIC ONE (07:23)
--- NOTE | 2024-10-20 08:03 | Operative Report ---
PG Post Operative Report Pre & Post Diagnosis Operation Date: 10/20/24 07:00 Pre-Op Diagnosis: Left Hip Arthritis Post-Op Diagnosis: Left Hip Arthritis I identified the patient and participated in the time-out.: Yes Procedure Operation Date: 10/20/24 07:00 Actual Procedures p Left Anterior Total Hip Arthroplasty(Left) - Aashish Fritz DO Surgeon Aashish Fritz DO Therapist Asst Kevin Mason PA-C Estimated Blood Loss 150 Findings Consistent with Post-Op Diagnosis Specimens Left femoral head Description of Procedure Implants used I used a ZimmerBiomet total hip arthroplasty system with a size 4 standard offset Z1 stem, a 50 mm G7 cup, an E1 polyethylene liner, a 36 mm ceramic head with a +3.5 neck. Frandy arrived at the hospital for the above procedure. He was seen in the preoperative holding area and the operative extremity was identified and signed. He was given a spinal anesthetic, a preoperative antibiotic, and TXA. He was then taken back to the operating room and laid on the table in the supine position. He was given basic sedation. The operative leg was secured to a Puristst leg positioner. The hip was then prepped and draped in sterile fashion. A timeout was done and the patient and the operative extremity was properly identified. An anterior approach was used. Dissection was taken down through the fascia and the tensor muscle belly was retracted laterally and the rectus was retracted medially. The circumflex vessels were identified and ligated. The capsule was then incised and tagged for later repair. The femoral neck was then cut and the femoral head was removed. The acetabulum was exposed. Time was spent doing a complete circumferential labral release. Sequential reaming of the acetabulum up to a size 49 reamer was done. Final reamings were done under fluoroscopy to ensure appropriate version. A Biomet 50 mm G7 cup was then impacted into place. The E1 polyethylene liner was then snapped into place. Surrounding soft tissues were then injected with 100 cc of an orthopedic pain control cocktail. The proximal femur was then exposed. Sequential broaching up to a size 4 standard offset broach was done. Off that broach a size 36 head with a +3.5 neck was trialed. The hip was reduced and fluoroscopic images showed anatomic alignment of the implants in acceptable length. The broach was removed. The final size 4 standard offset Z1 stem was then impacted into place. A ceramic 36 mm head with a +3.5 neck was then impacted onto the stem and the hip was reduce d. Final fluoroscopic images showed anatomic alignment of the hip. The capsule was then closed with #1 Vicryl suture. A dilute betadyne lavage was then done for 3 minutes. The joint was then irrigated with normal saline solution. The fascia was closed with #1 PDS suture. Skin was closed with 2-0 Vicryl, Olmitz zip line, and a Silverlon dressing. He was then transferred to a hospital bed and taken to the post anesthesia care unit in stable condition. He tolerated the procedure well. Kevin Mason PA-C, was present for the entire procedure. He was critical for patient positioning, prepping, draping, retraction exposure, wound closure and application of sterile dressing. I attest to the content of the Intraoperative Record and any orders documented therein. Any exceptions are noted below.
[2024-10-20] MEDS: ROPIV 0.5% 246mg, Ketorolac 30mg, EPINEPHrine 0.5mg in NSS INFIL SCH (08:05)
[2024-10-20] MEDS ORDERED: PHENYLEPHRINE 100MCG/ML 5ML SYR ONE (08:32)
--- NOTE | 2024-10-20 08:59 | XRay Report ---
XR hip 1V LT w pelvis HISTORY: 68 years-old Male IN PACU - Post Surgical COMPARISON: Fluoroscopic images of the left hip of same day TECHNIQUE: AP view of the pelvis with crosstable lateral view of the left hip FINDINGS: Moderate osteoarthritis of the right hip. Satisfactory alignment of the left hip arthroplasty. Expect ed soft tissue swelling with deep tissue air within the lateral left hip/proximal thigh. No unexpecte d opaque foreign bodies. IMPRESSION: Satisfactory alignment of the left hip arthroplasty. ACT 112: Negative or not required by law. The above report was generated using voice recognition software. It may contain grammatical, syntax o r spelling errors. Electronically signed by: Andres Shabazz M.D. 10/20/2024 8:58 AM
[2024-10-20] MEDS ORDERED: MAGNESIUM HYDROXIDE SUSP 30 ML UDC PO PRN (09:35)
[2024-10-20] MEDS ORDERED: NALOXONE HCL 0.4 MG/1 ML VIAL/CARP IV PRN (09:35)
[2024-10-20] MEDS ORDERED: HYDROmorphone INJ 0.5 MG/0.5 ML SYR IV PRN (09:35)
[2024-10-20] MEDS ORDERED: METOCLOPRAMIDE HCL INJ 5 MG/ML 2 ML VIAL IV PRN (09:35)
--- NOTE | 2024-10-20 09:41 | Fluoroscopy Report ---
FL hip LT 1V CLINICAL HISTORY: Left hip arthroplasty. COMPARISON STUDY: Left hip radiographs May 22, 2024. Fluoroscopy time: 13 seconds. Number of fluoroscopic images: 1 Ka,r: 1.7376 mGy. FINDINGS: Fluoroscopy was provided during anterior total left hip arthroplasty. Alignment is anatomic . Hardware is intact. No fractures are identified. No unexpected radiopaque foreign bodies. IMPRESSION: Fluoroscopy provided during anterior total left hip arthroplasty. ACT 112: Negative or not required by law. Electronically signed by: Clyde Tijerina M.D. 10/20/2024 9:39 AM
[2024-10-20] MEDS: HYDROXYCHLOROQUINE SULFATE 200 MG TAB PO SCH ×2 (10:12→20:29)
[2024-10-20] MEDS: SODIUM CHLORIDE 0.9% 1,000 ML IV SCH (10:15)
[2024-10-20] MEDS: MULTIVITAMIN TAB PO SCH (10:24)
[2024-10-20] MEDS: DOCUSATE SODIUM 100 MG CAP PO SCH (10:24)
[2024-10-20] MEDS: KETOROLAC TROMETHAMINE 15 MG/ML VIAL IV SCH (10:26)
--- NOTE | 2024-10-20 10:48 | Anesthesiology Progress Note ---
Date of Service October 20, 2024 Anesthesia Post Procedure Vital Signs Vital Signs: Temp Pulse Pulse Resp BP Pulse Ox O2 Del Method 10/20/24 10:46 36.3 C L 78 18 114/73 98 Room Air 10/20/24 10:13 36.5 C 75 18 118/74 97 Room Air 10/20/24 09:43 36.4 C L 74 18 116/68 96 Room Air 10/20/24 09:35 80 16 96/69 L 97 Room Air 10/20/24 09:25 36.4 C L 77 12 105/73 95 Room Air 10/20/24 09:15 77 15 103/64 95 Room Air 10/20/24 09:05 75 12 105/63 95 Room Air 10/20/24 08:55 76 14 101/62 100 Oxymask 10/20/24 08:45 77 12 105/67 100 Oxymask 10/20/24 08:35 79 12 100/57 L 99 Oxymask 10/20/24 08:28 36.1 C L 86 16 102/57 L 99 Oxymask 10/20/24 05:41 36.5 C 85 18 133/81 95 Room Air O2 Flow Rate 10/20/24 10:46 10/20/24 10:13 10/20/24 09:43 10/20/24 09:35 10/20/24 09:25 10/20/24 09:15 10/20/24 09:05 10/20/24 08:55 4 10/20/24 08:45 4 10/20/24 08:35 8 10/20/24 08:28 8 10/20/24 05:41 Notes Mental Status: alert / awake / arousable Patient Amnestic to Procedure: Yes Nausea / Vomiting: adequately controlled Pain: adequately controlled Airway Patency, RR, SpO2: stable & adequate BP & HR: stable & adequate Hydration State: stable & adequate Neuraxial Anesthesia: was administered and sensory block is resolving Anesthetic Complications: no major complications apparent
[2024-10-20] MEDS: ASPIRIN 81 MG ECTAB PO SCH (20:30)
[2024-10-20] MEDS: ATORVASTATIN 20 MG TAB PO SCH (20:30)
[2024-10-20] MEDS: SENNA 8.6 MG TAB PO SCH (20:30)
[2024-10-21 03:24] VITALS: O2SAT 97
[2024-10-21 07:34] VITALS: RESP 17; TEMP 97.7
[2024-10-21 08:31] VITALS: BP 129/79; PULSE 86
--- NOTE | 2024-10-21 08:55 | Orthopedic Progress Note ---
Date of Service October 21, 2024 Assessment & Plan (1) S/P total left hip arthroplasty: * Continue Current Treatment * Disposition: home * Daily treatment: Physical Therapy/ Occupational Therapy per protocol * Weight bearing status: WBAT, no precautions * Continue to monitor for ABLA * Pain control * DVT prophylaxis, ASA * Office/hospital f/u 2 weeks for progress check and staple/suture removal * Plan for discharge today pending PT/OT clearance Subjective .Active Problems: S/p left RAFI POD 1 68 y/o male s/p left RAFI. Doing well overall, pain managed and improved function. Denies fever/chills, chest pain/SOB, nausea/vomiting. Otherwise no complaints. Review of Systems All systems reviewed & are unremarkable except as noted in HPI & below. Physical Exam . * General: Alert and oriented, no acute distress * Constitutional: well-developed, well-nourished. * Respiratory: Normal respiratory effort, no distress * Gastrointestinal: No tenderness to palpation, no rigidity or guarding. * Skin: No rash or lesion. * Neurologic: Grossly normal * Musculoskeletal: left hip surgical dressing CDI, not removed for exam. Otherwise no obvious deformity or overlying skin changes. Diffuse TTP proximal thigh and hip region. Otherwise no specific tenderness of distal thigh, lower leg, foot/ankle. AROM hip flexion intact. AROM foot/ankle intact. Sensation intact plantar/dorsal foot. Brisk capillary refill. Results & Data Results & Data Laboratory Results . Diagnostic Findings . Hip X-Ray 10/20/24 07:00 FL hip LT 1V CLINICAL HISTORY: Left hip arthroplasty. COMPARISON STUDY: Left hip radiographs May 22, 2024. Fluoroscopy time: 13 seconds. Number of fluoroscopic images: 1 Ka,r: 1.7376 mGy. FINDINGS: Fluoroscopy was provided during anterior total left hip arthroplasty. Alignment is anatomic. Hardware is intact. No fractures are identified. No unexpected radiopaque foreign bodies. IMPRESSION: Fluoroscopy provided during anterior total left hip arthroplasty. ACT 112: Negative or not required by law. Electronically signed by: Clyde Tijerina M.D. 10/20/2024 9:39 AM Hip/Pelvis X-Ray 10/20/24 08:29 XR hip 1V LT w pelvis HISTORY: 68 years-old Male IN PACU - Post Surgical COMPARISON: Fluoroscopic images of the left hip of same day TECHNIQUE: AP view of the pelvis with crosstable lateral view of the left hip FINDINGS: Moderate osteoarthritis of the right hip. Satisfactory alignment of the left hip arthroplasty. Expected soft tissue swelling with deep tissue air within the lateral left hip/proximal thigh. No unexpected opaque foreign bodies. IMPRESSION: Satisfactory alignment of the left hip arthroplasty. ACT 112: Negative or not required by law. The above report was generated using voice recognition software. It may contain grammatical, syntax or spelling errors. Electronically signed by: Andres Shabazz M.D. 10/20/2024 8:58 AM PG Care Time/CCT Total # of Minutes Spent Total Time Spent with Patient: Total time spent is greater than 50% in coordination of care (as documented) at patient's floor/unit and/or counseling patient: Coding Level of Care Code 50804 Post Operative Follow-Up Diagnoses S/P total left hip arthroplasty Z96.642
== END 2024-10-21 11:09 | disposition home or self-care (01) ==
LOC: ASU 05:31 → 3N 05:31